=== PATIENT | male | born 1980 | race Caucasian/White ===

== ENCOUNTER 2017-10-13 14:56 | Emergency (ER) | payer BC ==
[2017-10-13 16:42] LABS: Absolute Lymphocytes (CBC) 1.2 K/uL (0.7-4.9); Absolute Monocytes 0.6 K/uL (0.1-1.3); Absolute Neutrophil 4.1 K/uL (1.8-8.0); Basophils % 0.8 % (0-1.3); Eosinophils % 1.1 % (0-4.4); Hematocrit 42.2 % (39.6-49.0); Lymphocytes % 19.7 % (15.3-44.8); MCH 29.2 pg (27.0-35.0); MCV 86.4 fL (80-100); MPV 9.1 fL (7.6-11.3); Monocytes % 9.4 % (3.3-12.3); RBC Red Blood Cell Count 4.89 M/uL (4.33-5.43)
[2017-10-13 16:44] LABS: Potassium 3.8 mEq/L (3.6-5.0)
--- NOTE | 2017-10-13 17:21 | RAD REPORT ---
EXAM DESCRIPTION: CT - Head Brain Wo Cont - 10/13/2017 5:10 pm CLINICAL HISTORY: Headache COMPARISON: None. TECHNIQUE: All CT scans are performed using dose optimization technique as appropriate and may inclu de automated exposure control or mA/KV adjustment according to patient size. FINDINGS: No intracranial hemorrhage, hydrocephalus or extra-axial fluid collection.No areas of brai n edema or evidence of midline shift. The paranasal sinuses and mastoids are clear. The calvarium is intact. IMPRESSION: No acute intracranial abnormality.
--- NOTE | 2017-10-13 17:30 | RAD REPORT ---
EXAM DESCRIPTION: CT - Head angio - 10/13/2017 5:16 pm CLINICAL HISTORY: Headache COMPARISON: Noncontrast CT head same date. FINDINGS: CT angiogram of the crow of [place] was performed with volume rendering. No flow-limiting stenosis, vascular malformation or aneurysm is detected. origin of the left po sterior communicating artery is noted, a normal variant. Codominant bilateral vertebral arteries are present. Dural venous sinuses are patent. IMPRESSION: No significant flow abnormality of the crow of [place] is identified.
[2017-10-13] MEDS ORDERED: DIPHENHYDRAMINE 50 MG/ML VIAL ONE (17:45)
[2017-10-13] MEDS ORDERED: METOCLOPRAMIDE 10 MG/2mL INJ ONE (17:45)
--- NOTE | 2017-10-13 18:19 | EDPHYS ---
Physician Documentation [facility] Name: Vince Goode Age: 37 yrs Sex: Male : 1980 Arrival Date: 10/13/2017 Time: 14:59 Bed 7 Private MD: ED Physician Napoleon Plascencia HPI: 10/13 16:51 This 37 yrs old Male presents to ER via Ambulatory with complaints of jr8 Headache, High Blood Pressure. 17:05 The patient complains of pain to the right occipital area. The patient describes the jr8 headache as throbbing. Onset: The symptoms/episode began/occurred acutely, today. Associated signs and symptoms: Pertinent positives: Photophobia. Severity of symptoms: At its worst the pain was moderate, in the emergency department the pain is unchanged. Headache History: Denies prior headaches. The symptoms are alleviated by nothing. the symptoms are aggravated by lights, movement, noise. The patient has not experienced similar symptoms in the past. The patient has not recently seen a physician. Patient stated that he had just finished having coitus with . Sudden onset headache since then that has only been mildly relieved . Historical: - Allergies: 15:17 No Known Allergies; aj - Home Meds: 15:17 None [Active]; aj - PMHx: 15:17 Hypertension; aj - PSHx: 15:17 Hernia repair; aj - Immunization history:: Adult Immunizations up to date. - Social history:: Smoking status: Patient/guardian denies using tobacco. ROS: 17:05 Eyes: Negative for injury, pain, redness, and discharge, ENT: Negative for injury, jr8 pain, and discharge, Neck: Negative for injury, pain, and swelling, Cardiovascular: Negative for chest pain, palpitations, and edema, Respiratory: Negative for shortness of breath, cough, wheezing, and pleuritic chest pain, Abdomen/GI: Negative for abdominal pain, nausea, vomiting, diarrhea, and constipation, Back: Negative for injury and pain, MS/Extremity: Negative for injury and deformity, Skin: Negative for injury, rash, and discoloration. 17:05 Neuro: Positive for headache. Exam: 17:05 Eyes: Pupils equal round and reactive to light, extra-ocular motions intact. Lids and jr8 lashes normal. Conjunctiva and sclera are non-icteric and not injected. Cornea within normal limits. Periorbital areas with no swelling, redness, or edema. ENT: Nares patent. No nasal discharge, no septal abnormalities noted. Tympanic membranes are normal and external auditory canals are clear. Oropharynx with no redness, swelling, or masses, exudates, or evidence of obstruction, uvula midline. Mucous membranes moist. Neck: Trachea midline, no thyromegaly or masses palpated, and no cervical lymphadenopathy. Supple, full range of motion without nuchal rigidity, or vertebral point tenderness. No Meningismus. Cardiovascular: Regular rate and rhythm with a normal S1 and S2. No gallops, murmurs, or rubs. Normal PMI, no JVD. No pulse deficits. Respiratory: Lungs have equal breath sounds bilaterally, clear to auscultation and percussion. No rales, rhonchi or wheezes noted. No increased work of breathing, no retractions or nasal flaring. Abdomen/GI: Soft, non-tender, with normal bowel sounds. No distension or tympany. No guarding or rebound. No evidence of tenderness throughout. Back: No spinal tenderness. No costovertebral tenderness. Full range of motion. Skin: Warm, dry with normal turgor. Normal color with no rashes, no lesions, and no evidence of cellulitis. MS/ Extremity: Pulses equal, no cyanosis. Neurovascular intact. Full, normal range of motion. Neuro: Awake and alert, GCS 15, oriented to person, place, time, and situation. Cranial nerves II-XII grossly intact. Motor strength 5/5 in all extremities. Sensory grossly intact. Cerebellar exam normal. Normal gait. Vital Signs: 15:17 BP 146 / 97; Pulse 74; Resp 19; Temp 98.6; Pulse Ox 98% on R/A; Weight 104.33 kg; aj Height 72 in. (182.88 cm); 16:30 BP 134 / 92; Pulse 67; Resp 17; Pulse Ox 100% on R/A; ae1 17:23 BP 139 / 87; Pulse 80; Resp 16; Pulse Ox 100% on R/A; ae1 18:46 BP 137 / 89; Pulse 71; Resp 16; Pulse Ox 99% ; jl7 15:17 Body Mass Index 31.19 (104.33 kg, 182.88 cm) aj MDM: 15:27 Patient medically screened. jr8 17:45 Differential diagnosis: intracerebral hemorrhage, migraine, neoplasm, subarachnoid jr8 bleed, tension headache, aneurysm. Data reviewed: vital signs, nurses notes, lab test result(s), radiologic studies, CT scan, and as a result, I will discharge patient. Data interpreted: Pulse oximetry: on room air is 100 %. Interpretation: normal. Counseling: I had a detailed discussion with the patient and/or guardian regarding: the historical points, exam findings, and any diagnostic results supporting the discharge/admit diagnosis, lab results, radiology results, the need for outpatient follow up, a family practitioner, to return to the emergency department if symptoms worsen or persist or if there are any questions or concerns that arise at home. Response to treatment: the patient's symptoms have markedly improved after treatment. 10/13 15:30 Order name: CT Head Brain wo Cont; Complete Time: 17:22 8 10/13 15:36 Order name: Head angio; Complete Time: 17:35 [facility] 10/13 16:12 Order name: Basic Metabolic Panel; Complete Time: 16:46 [facility] 10/13 16:12 Order name: CBC with Diff; Complete Time: 16:50 [facility] 10/13 15:28 Order name: IV; Complete Time: 16:16 jr8 Administered Medications: 17:41 Drug: Reglan 10 mg Route: IVP; Site: left antecubital; ae1 17:45 Drug: Benadryl 25 mg Route: IVP; Site: left antecubital; ae1 Disposition: 10/13/17 17:46 Discharged to Home. Impression: Migraine, Headache associated with sexual activity. - Condition is Stable. - Discharge Instructions: Migraine Headache. - Medication Reconciliation Form, Thank You Letter, Antibiotic Education, Prescription Opioid Use form. - Follow up: Private Physician; When: 2 - 3 days; Reason: Recheck today's complaints, Continuance of care, Re-evaluation by your physician. - Problem is new. - Symptoms have improved. Addendum: 10/16/2017 08:50 Co-signature as Attending Physician, Napoleon Plascencia MD I agree with the assessment and c roberson plan of care. Signatures: Dispatcher [employer] EDTreasure Knight RN RN aj Anderson, Corey, MD MD cha Roszak, Josh, PA PA jr8 Colt Acuna RN RN ae1 Bashir, Jahala, RN RN jl7 Corrections: (The following items were deleted from the chart) 10/13 16:10 15:28 CBC+H.LAB.BRZ ordered. EDMS EDMS 16:10 15:28 BASIC METABOLIC PANEL+C.LAB.BRZ ordered. EDFL EDMS 18:48 17:46 10/13/2017 17:46 Discharged to Home. Impression: Migraine; Headache associated jl7 with sexual activity. Condition is Stable. Forms are Medication Reconciliation Form, Thank You Letter, Antibiotic Education, Prescription Opioid Use. Follow up: Private Physician; When: 2 - 3 days; Reason: Recheck today's complaints, Continuance of care, Re-evaluation by your physician. Problem is new. Symptoms have improved. jr8
--- NOTE | 2017-10-13 18:19 | ER ---
Nurse's Notes [facility] Name: Vince Goode Age: 37 yrs Sex: Male : 1980 Arrival Date: 10/13/2017 Time: 14:59 Bed 7 Private MD: Diagnosis: Migraine;Headache associated with sexual activity Presentation: 10/13 15:15 Presenting complaint: Patient states: Reports sudden onset of headache, post-coitus at aj 0900 this am. Patient reports sensitivity to light. Transition of care: patient was not received from another setting of care. Onset of symptoms was October 13, 2017. Initial Sepsis Screen: Does the patient meet any 2 criteria? No. Patient's initial sepsis screen is negative. Does the patient have a suspected source of infection? No. Patient's initial sepsis screen is negative. Care prior to arrival: None. 15:15 Method Of Arrival: Ambulatory 15:15 Acuity: GEORGE 3 Triage Assessment: 15:17 Headache History: The patient has had previous headaches and this one is different than previous episodes. General: Appears in no apparent distress. comfortable, Behavior is calm, cooperative, appropriate for age. Pain: Complains of pain in face and scalp Pain. Neuro: Level of Consciousness is awake, alert, obeys commands, Oriented to person, place, time, situation, Appropriate for age Reports headache. Respiratory: Airway is patent Respiratory effort is even, unlabored, Respiratory pattern is regular, symmetrical. Derm: Skin is intact, is healthy with good turgor, Skin is pink, warm \T\ dry. normal. 16:41 Pain: Pain began suddenly, Also complains of photophobia. ae1 Historical: - Allergies: 15:17 No Known Allergies; aj - Home Meds: 15:17 None [Active]; aj - PMHx: 15:17 Hypertension; - PSHx: 15:17 Hernia repair; - Immunization history:: Adult Immunizations up to date. - Social history:: Smoking status: Patient/guardian denies using tobacco. Screenin:31 Abuse screen: Denies threats or abuse. Nutritional screening: No deficits noted. ae1 Tuberculosis screening: No symptoms or risk factors identified. Fall Risk None identified. Assessment: 16:17 General: Appears in no apparent distress. uncomfortable, well groomed, Behavior is ae1 calm, cooperative. Pain: Complains of pain in head and back of head Noted to be quiet/stoic, Patient has sunglasses on and asked that lights be turned off. Neuro: Level of Consciousness is awake, alert, obeys commands, Oriented to person, place, time, situation. Cardiovascular: Heart tones S1 S2 present Patient's skin is warm and dry. Respiratory: Airway is patent Respiratory effort is even, unlabored, Respiratory pattern is regular, symmetrical, Breath sounds are clear bilaterally. GI: No signs and/or symptoms were reported involving the gastrointestinal system. Patient currently denies nausea. : No signs and/or symptoms were reported regarding the genitourinary system. EENT: wearing sunglasses. . Derm: Skin is normal. Musculoskeletal: No signs and/or symptoms reported regarding the musculoskeletal system. 17:22 Reassessment: Patient returned from CT, states headache has decreased but pain ae1 increases when he stands up. Vital Signs: 15:17 BP 146 / 97; Pulse 74; Resp 19; Temp 98.6; Pulse Ox 98% on R/A; Weight 104.33 kg; aj Height 72 in. (182.88 cm); 16:30 BP 134 / 92; Pulse 67; Resp 17; Pulse Ox 100% on R/A; ae1 17:23 BP 139 / 87; Pulse 80; Resp 16; Pulse Ox 100% on R/A; ae1 18:46 BP 137 / 89; Pulse 71; Resp 16; Pulse Ox 99% ; jl7 15:17 Body Mass Index 31.19 (104.33 kg, 182.88 cm) aj ED Course: 14:59 Patient arrived in ED. rg4 15:17 Triage completed. aj 15:17 Arm band placed on left wrist. Patient placed in waiting room, Patient notified of wait aj time. 15:23 Royce Bashir RN is Primary Nurse. jl7 15:27 Ralph Mustafa PA is PHCP. jr8 15:27 Napoleon Plascencia MD is Attending Physician. jr8 15:37 Radiology exam delayed due to lab results not completed at this time. (BUN/Creatinine). nj 15:37 Radiology exam delayed due to IV insertion attempt and/or patient not having nj appropriate IV at this time. 15:54 Colt Acuna RN is Primary Nurse. ae1 16:17 Inserted saline lock: 20 gauge in left antecubital area, using aseptic technique. Blood ae1 collected. 16:41 Bed in low position. Call light in reach. Side rails up X 1. Adult w/ patient. Pulse ox ae1 on. NIBP on. 17:[address] via wheelchair. Patient moved to radiology. 17:11 CT Head Brain wo Cont In Process Unspecified. EDMS 17:16 Head angio In Process Unspecified. EDMS 17:20 CT completed. Patient tolerated procedure well. Patient moved back from CT. nc 17:22 Patient moved back from CT. ae1 18:47 No provider procedures requiring assistance completed. IV discontinued, intact, jl7 bleeding controlled, No redness/swelling at site. Pressure dressing applied. Administered Medications: 17:41 Drug: Reglan 10 mg Route: IVP; Site: left antecubital; ae1 17:45 Drug: Benadryl 25 mg Route: IVP; Site: left antecubital; ae1 Outcome: 17:46 Discharge ordered by . ac 18:47 Discharged to home ambulatory. jl7 18:47 Condition: stable 18:47 Discharge instructions given to patient, Instructed on discharge instructions, follow up and referral plans. Demonstrated understanding of instructions, follow-up care. 18:48 Patient left the ED. jl7 Signatures: Dispatcher [employer] Treasure Howell, Abhishek Gunn RN, Josh, PA PA jr8 Colt Acuna RN RN ae1 Mehreen Luis4 Thang Redman Jahala RN RN jl7 Corrections: (The following items were deleted from the chart) 15:20 15:15 Acuity: GEORGE 4 [place]
== END 2017-10-13 18:48 | disposition home or self-care (01) ==
LOC: ER 14:56
DX: G43.909 Migraine, unspecified, not intractable, without status migrainosus (principal); I10 Essential (primary) hypertension
CPT/HCPCS: 36415; 70450; 70496; 80048; 85025; 96374; 96375; 99284; J2765; Q9967